=== PATIENT | female | born 1965 | race African-American/Black ===

== ENCOUNTER → 2016-12-17 | Outpatient (CLI) | payer OTHER ==
[~2016-12-17] MED LIST: AMITRIPTYLINE H25 M2 PO; CARVEDILOL25 MG PO; CELEXA40 MG PO; CLOTRIMAZOLE-BE15 GM TP; DIFLUCAN150 MG PO; EXFORGE PO; FENTANYL PA50 MCG/HR TRANSDERM; FLEXERIL PO; HYDROCODON-ACE1 EACH PO; KEFLEX750 MG PO; MAXIDE; NASONEX17 GM; NORCO 5-325 TA1 EACH; NORCO 5-325 TA1 EACH PO; PHENERGAN 25 MG25 M1 PO; TRAMADOL 50 MG50 MG; ULTRAM 50MG TAB50 MG PO; XANAX1 MG PO
== END ==
LOC: RAD 11:42
DX: Z12.31 Encounter for screening mammogram for malignant neoplasm of breast (principal)

== ENCOUNTER → 2017-12-30 | Outpatient (CLI) | payer OTHER | LOC: RAD 09:08 | DX: Z12.31 Encounter for screening mammogram for malignant neoplasm of breast (principal) ==

== ENCOUNTER → 2018-12-30 | Outpatient (CLI) | payer OTHER | LOC: RAD 16:13 | DX: Z12.31 Encounter for screening mammogram for malignant neoplasm of breast (principal) ==

== ENCOUNTER → 2019-01-03 | Outpatient (CLI) | payer OTHER | LOC: RAD 15:40 | DX: R92.8 Other abnormal and inconclusive findings on diagnostic imaging of breast (principal) ==

== ENCOUNTER → 2019-01-10 | Outpatient (CLI) | payer OTHER ==
--- NOTE | 2019-01-12 11:09 | PATH ---
[facility] [address] [place] [address] PATHOLOGY RPT PROCEDURE Name: LUPILLO DANIEL Room #: REG YOSEF Carranza.#: [id number] Admission: 01/10/19 Date of : 67 Discharge: Report #: [id number] Path Case #: [id number] [facility] Accession Number: [id number] . 01 Material submitted: . RIGHT BREAST CENTRAL . Clinical history: . Right breast calcifications History of right breast cancer 2010 . Diagnosis: Right central breast, stereotactic needle core biopsy: - DUCTAL CARCINOMA IN SITU, CRIBRIFORM TYPE AND COMEDO TYPE, HIGH NUCLEAR GRADE ASSOCIATED WITH COARSE CALCIFICATIONS. . (IUV:mml; 01/11/2019) QLM/01/11/2019 . 02 Comment: Examination shows a ductal carcinoma in situ sampled in multiple cores associated with coarse calcifications and central necrosis in scattered areas. Two separate areas worrisome for invasion are identified. P63 and smooth muscle myosin heavy chain are ordered on blocks A2 and A3. Definite loss of myoepithelial layer is not identified within these foci. P63 is intact around the focus in block A2; however is lost on A3. The myosin (smmhc) is intact in both blocks A2 and A3. The desmoplastic response; however, is highly suspicious for one. This area measures 1 mm in greatest dimension. . Dr. Nenita Obrien and Dr. Giovanni Barr have seen insurance account representative slides of this case and concur with my diagnosis. . The findings of this case are telephoned to Alice at our breast center at 2:54 on 01/11/19. . (IUV:mml; 01/11/2019) . 02 Electronically signed: . Nel Mackay MD, Pathologist NPI- [id number] . 01 Gross description: . The specimen is received in formalin labeled "Lupillo Daniel". The specimen source is not listed on the container. The source is listed on the requisition as, "right central breast stereotactic biopsy". Received in a white tissue cassette are multiple needle cores of [address] [address] PATHOLOGY RPT PROCEDURE Name: LUPILLO DANIEL Room #: TAY Ordaz#: [id number] Admission: 01/10/19 Date of : 67 Discharge: Report #: [id number] Path Case #: [id number] fibrofatty tissue measuring 2.6 x 1.8 x 0.3 cm in aggregate dimensions. This tissue is submitted in cassette A1. Also received in a separate Telfa pad are multiple needle cores of yellow-rice fibrofatty tissue measuring 2.4 x 2.2 x 0.3 cm in aggregate dimensions. This tissue is submitted entirely in cassettes A2 and A3. The cold ischemic time is 5 minutes. The total formalin fixation time is 11 hours and 50 minutes. (DAC; 01/10/2019) XDC/XDC . 02 Pathologist provided ICD-10: D05.11 . 02 CPT . 141436, [id number], J04431 Specimen Comment: A courtesy copy of this report has been sent to Specimen Comment: [phone], . Specimen Comment: Report sent to / DR GLASGOW Performed at: [address], [place] [id number] MD Justin Choudhury MD Phone: [phone] Performed at: [address] [id number] MD Nel Mackay MD Phone: [phone]
== END | disposition home or self-care (01) ==
LOC: RAD 09:16
DX: D05.11 Intraductal carcinoma in situ of right breast (principal); R92.0 Mammographic microcalcification found on diagnostic imaging of breast; Z85.3 Personal history of malignant neoplasm of breast; Z88.2 Allergy status to sulfonamides; Z79.899 Other long term (current) drug therapy